=== PATIENT | female | born 1965 | race African-American/Black ===

== ENCOUNTER 2018-04-11 17:54 | Emergency (ER) | payer SELFPAY ==
[~2018-04-11] VITALS: Ht 165.1 cm; Wt 85.0 kg
[2018-04-11] MEDS ORDERED: LORAZEPAM 2MG/ML CPJ IV STA (18:22)
[2018-04-11] MEDS ORDERED: HALOPERIDOL LACTATE 5MG/ML VIAL IM STA (18:22)
[2018-04-11] MEDS ORDERED: DIPHENHYDRAMINE 50MG/ML VIAL IM STA (18:22)
[2018-04-11 18:47] LABS: BASOPHILS % 0.3 % (0.0-2.0); EOSINOPHILS % 0.3 % (0.0-5.0); HEMATOCRIT. 37.7 % (36.0-48.0); HEMOGLOBIN. 13.1 g/dL (12.0-16.0); LYMPHOCYTES % 22.1 % (20.0-50.0); MEAN CORPUSCULAR VOLUME 77.5 fL (81.0-99.0); MEAN PLATELET VOLUME 8.4 fl (7.4-10.4); MONOCYTES % 5.2 % (2.0-8.0); NEUTROPHILS % 72.1 % (40.0-76.0); PLATELET 305 x1000/uL (130-400); RED BLOOD CELL COUNT 4.87 mill/uL (4.2-5.4); RED CELL DISTRIBUTION WIDTH 14.3 % (11.6-14.6)
[2018-04-11 18:52] LABS: CHLORIDE 104 mEq/L (98-107)
[2018-04-11 18:56] LABS: ETHANOL BLOOD < 10 mg/dL
[2018-04-12 09:37] VITALS: BP 118/68
== END 2018-04-12 09:57 | disposition home or self-care (01) ==
LOC: ER 17:54
DX: F91.8 Other conduct disorders (principal); S80.211A Abrasion, right knee, initial encounter; E11.65 Type 2 diabetes mellitus with hyperglycemia; I10 Essential (primary) hypertension; Y04.0XXA Assault by unarmed brawl or fight, initial encounter; Y93.89 Activity, other specified; Y92.89 Other specified places as the place of occurrence of the external cause
CPT/HCPCS: 36415; 70450; 80053; 85025; 96372; 96374; 99285; G0482; J1200; J1630; J2060; Z7610